=== PATIENT | female | born 1990 ===

== ENCOUNTER 2017-07-23 01:54 | Emergency (ER) | payer BC ==
[2017-07-23 02:16] VITALS: BP 113/77; PULSE 74; RESP 16; TEMP 97.4; O2SAT 97
--- NOTE | 2017-07-23 03:13 | C.PDOC ---
History Of Present Illness 27yo female presents to ED with complaints of sore throat, cough, nasal congestion since this morning. She reports the pain is worse with swallowing. She denies any fever or known sick contacts. Patient has no other medical complaints. Time Seen by Provider: 07/23/17 02:08 Chief Complaint (Nursing): ENT Problem History Per: Patient History/Exam Limitations: None Onset/Duration Of Symptoms: Mins Current Symptoms Are (Timing): Still Present Past Medical History Reviewed: Historical Data, Nursing Documentation, Vital Signs Vital Signs: Last Vital Signs Temp 97.4 F L 07/23/17 02:01 Pulse 74 07/23/17 02:01 Resp 16 07/23/17 02:01 BP 113/77 07/23/17 02:01 Pulse Ox 97 07/23/17 05:20 - Medical History PMH: No Chronic Diseases Surgical History: Back Surgery Family History: States: Unknown Family Hx - Social History Hx Alcohol Use: No (DENIED) Hx Substance Use: No (DENIED) Review Of Systems Except As Marked, All Systems Reviewed And Found Negative. Constitutional: Negative for: Fever, Chills ENT: Positive for: Nose Congestion, Throat Pain Physical Exam - Physical Exam Appears: Non-toxic, No Acute Distress Skin: Normal Color, Warm, Dry Head: Atraumatic, Normacephalic Eye(s): bilateral: Normal Inspection, PERRL Nose: Normal Oral Mucosa: Moist Throat: No Erythema, No Exudate, Other (enlarged tonsils) Neck: Normal ROM, Supple, No Other (swelling) Chest: Symmetrical Cardiovascular: Rhythm Regular Respiratory: Normal Breath Sounds, No Rhonchi, No Wheezing Neurological/Psych: Oriented x3 ED Course And Treatment O2 Sat by Pulse Oximetry: 97 (RA) Pulse Ox Interpretation: Normal Progress Note: Rapid strep test negative. Patient given Motrin 800 mg PO with improvement in pain. Stable for discharge home, instructed to follow up with PCP in 2-3 days. Reassessment Condition: Improved Disposition - Disposition Referrals: [facility] [Outside] Disposition: HOME/ ROUTINE Disposition Time: 03:09 Condition: STABLE Additional Instructions: Please follow up with PMD Take meds as directed Return to ER if worse Prescriptions: Benzonatate [Tessalon Perles] 100 mg PO TID #20 sgl Cetirizine HCl [Zyrtec] 10 mg PO DAILY #20 capsule Ibuprofen [Motrin] 600 mg PO Q6H #20 tab Instructions: Viral Upper Respiratory Infection, Adult (DC) Forms: [facility] (Welsh), Work Excuse - Clinical Impression Clinical Impression: Upper respiratory infection - PA / [employer] / Resident Statement MD/DO has reviewed & agrees with the documentation as recorded. - Scribe Statement The provider has reviewed the documentation as recorded by the Scribe (Anay Christensen) Provider Attestation: All medical record entries made by the Scribe were at my direction and personally dictated by me. I have reviewed the chart and agree that the record accurately reflects my personal performance of the history, physical exam, medical decision making, and the department course for this patient. I have also personally directed, reviewed, and agree with the discharge instructions and disposition.
== END 2017-07-23 03:26 | disposition home or self-care (01) ==
LOC: C.ER 01:54
DX: J06.9 Acute upper respiratory infection, unspecified (principal)